=== PATIENT | female | born 1950 | race Caucasian/White ===

== ENCOUNTER 2023-03-15 06:35 | Inpatient (IN) | payer MEDICARE, OTHER ==
[~2023-03-15] VITALS: Ht 167.6 cm; Wt 69.9 kg
[2023-03-15 07:18] LABS: BASOPHILS % (AUTO) 0.2 % (0.0-2.0); EOSINOPHILS % (AUTO) 0.2 % (0.0-6.0); HEMATOCRIT 36 % (33-45); HEMOGLOBIN 11.5 g/dL (11.5-14.8); LYMPHOCYTES # (AUTO) 0.2 K/uL (0.8-4.8); MEAN CORPUSCULAR HEMOGLOBIN 25 PG (26.0-33.0); MEAN CORPUSCULAR HGB CONC 32 g/dl (31.0-36.0); MEAN CORPUSCULAR VOLUME 78 fL (82-100); MONOCYTES # (AUTO) 0.1 K/uL (0.1-1.30); MONOCYTES % (AUTO) 3.8 % (2.0-12.0); NEUTROPHILS # (AUTO) 3.2 K/uL (1.8-8.9); NEUTROPHILS % (AUTO) 88.8 % (43.0-81.0); PLATELET COUNT (AUTO) 228 K/uL (150-450); RED BLOOD CELL COUNT(AUTO) 4.54 MIL/uL (4.0-5.2); RED CELL DISTRIBUTION WIDTH 16.4 % (11.5-15.0); WHITE BLOOD COUNT (AUTO) 3.6 K/uL (4.3-11.0)
[2023-03-15] MEDS ORDERED: PIPERACILLIN /TAZOBACTAM 3.375 G in IV D5W 50 ML IV ONE (07:30)
[2023-03-15] MEDS ORDERED: ACETAMINOPHEN 650 MG/SUPP.RECT RC ONE ×2 (07:30→07:47)
[2023-03-15] MEDS ORDERED: IV NS 0.9% 1,000 ML BAG IV ONE (07:30)
[2023-03-15 07:36] LABS: CALCIUM, SERUM 8.6 mg/dL (8.5-10.1); CARBON DIOXIDE 21 mmol/L (21-32); CHLORIDE 96 mmol/L (98-107); GLUCOSE 147 mg/dL (74-106); INR 1.33 (0.91-1.10); PARTIAL THROMBOPLASTIN TIME 35.3 SEC (24.3-34.3); POTASSIUM 5.7 mmol/L (3.5-5.1); PROTHROMBIN TIME 13.8 SECS (9.2-11.1); SODIUM SERUM 131 mmol/L (136-145); UREA NITROGEN, BLOOD 46 mg/dL (7-18)
[2023-03-15 07:50] LABS: ALANINE AMINOTRANSFERASE 2598 U/L (12-78); ALBUMIN 3.1 g/dL (3.4-5.0); ALKALINE PHOSPHATASE 222 U/L (46-116); ASPARTATE AMINOTRANSFERASE > 1000 U/L (15-37); BILIRUBIN,DIRECT 0.3 mg/dL (0.0-0.2); BILIRUBIN,TOTAL 0.7 mg/dL (0.2-1.0)
[2023-03-15 07:55] LABS: LACTIC ACID 4.1 mmol/L (0.4-2.0)
[2023-03-15 08:03] LABS: APPEARANCE,URINE CLOUDY (CLEAR); BILIRUBIN,URINE NEGATIVE (NEGATIVE); BLOOD, URINE NEGATIVE Ery/uL (NEGATIVE); COLOR,URINE DARK YELLOW (YELLOW); KETONES,URINE NEGATIVE (NEGATIVE); LEUKOCYTE ESTERASE ,URINE 2+ (NEGATIVE); NITRITE, URINE NEGATIVE (NEGATIVE); PROTEIN,URINE 1+ mg/dl (NEGATIVE); UGLUCOSE NEGATIVE (NEGATIVE); UROBILINOGEN,URINE 0.2 EU/dL (0.2)
[2023-03-15 08:08] LABS: ADD URINE CULTURE YES; BACTERIA,URINE Moderate /HPF (None Seen); RBC,URINE 0-2 /HPF (0-2); SQUAMOUS EPITHELIAL CELL,UR Rare /HPF (None Seen)
[2023-03-15 08:22] LABS: ABG BASE EXCESS -2.6 mmol/L; ABG OXYGEN SATURATION 98.3 % (92.0-98.5); ABG PCO2 30.6 mmHg (35.0-45.0); ABG PH 7.446 (7.350-7.450); ABG PO2 121.7 mmHg (75.0-100.0); COHb 0.3 % (0.5-1.5); MetHb 0.2 % (0.0-1.5); O2Hb 97.8 % (94.0-97.0); SITE, ABG Left Radial
[2023-03-15] MEDS ORDERED: IPRATROPIUM NEB FS 0.5 MG/2.5 ML AMPUL.NEB NEB PRN (08:30)
[2023-03-15] MEDS ORDERED: ONDANSETRON HCL/PF 4 MG/2 ML VIAL IVP PRN (08:30)
[2023-03-15] MEDS ORDERED: MAGNESIUM HYDROXIDE 30 ML UDC PO PRN (08:30)
[2023-03-15] MEDS ORDERED: MAG HYDROX/AL HYDROX/SIMETH 30 ML UDC PO PRN (08:30)
[2023-03-15] MEDS ORDERED: DEXTROSE 50%-WATER 50 ML DISP.SYRIN IV PRN (08:30)
[2023-03-15] MEDS ORDERED: ACETAMINOPHEN 325 MG TABLET PO PRN (08:30)
[2023-03-15] MEDS ORDERED: ALBUTEROL FS 2.5 MG/0.5 ML VIAL.NEB NEB PRN (08:30)
[2023-03-15] MEDS ORDERED: Z GUARD REMEDY 4 OZ OINT TP PRN (08:30)
[2023-03-15] MEDS ORDERED: ZOLPIDEM TARTRATE 5 MG TABLET PO PRN (08:30)
[2023-03-15] MEDS ORDERED: HEPARIN SODIUM, PORCINE 5000 UNITS/1 ML VIAL SQ SCH (09:00)
[2023-03-15] MEDS: PANTOPRAZOLE 40 MG VIAL IV SCH (09:00)
[2023-03-15] MEDS ORDERED: CHOL100043 PO (09:17)
[2023-03-15] MEDS ORDERED: CRAN425C6 PO (09:17)
[2023-03-15] MEDS ORDERED: PETR113O TP (09:17)
[2023-03-15] MEDS ORDERED: CARV3.122 PO (09:17)
[2023-03-15] MEDS ORDERED: FOLI0.4T6 PO (09:17)
[2023-03-15] MEDS ORDERED: ACET-868 PO (09:17)
[2023-03-15] MEDS ORDERED: LEVE250T2 PO (09:17)
[2023-03-15] MEDS ORDERED: ASCO-352 PO (09:17)
[2023-03-15] MEDS ORDERED: ATOR40TA PO (09:17)
[2023-03-15] MEDS ORDERED: SPIR25TA6 PO (09:17)
[2023-03-15] MEDS ORDERED: DOCU-141 PO (09:17)
[2023-03-15] MEDS ORDERED: BISA10SU11 RC (09:17)
[2023-03-15] MEDS ORDERED: FAMO-130 PO (09:17)
[2023-03-15] MEDS ORDERED: MAGN400O6 PO (09:17)
[2023-03-15] MEDS ORDERED: INSU100V3 SQ (09:17)
[2023-03-15] MEDS ORDERED: MULT-447 PO (09:17)
[2023-03-15] MEDS ORDERED: ACET650S11 RC (09:17)
[2023-03-15] MEDS ORDERED: AMIN30LI66 PO (09:17)
[2023-03-15] MEDS ORDERED: NITR0.4T48 SL (09:17)
[2023-03-15] MEDS ORDERED: VITA1TAB56 PO (09:17)
[2023-03-15] MEDS ORDERED: FURO-144 PO (09:17)
[2023-03-15] MEDS ORDERED: OXYC5TAB3 PO (09:17)
[2023-03-15] MEDS ORDERED: GABA-532 PO (09:17)
[2023-03-15] MEDS ORDERED: APIX5TAB PO (09:17)
[2023-03-15] MEDS ORDERED: ZINC50TA69 PO (09:17)
[2023-03-15] MEDS ORDERED: ASPI-1169 PO (09:17)
[2023-03-15] MEDS ORDERED: ACET-2605 PO ×2 (09:17)
[2023-03-15] MEDS ORDERED: FERR325T23 PO (09:17)
[2023-03-15] MEDS ORDERED: PANTOPRAZOLE 40 MG VIAL ONE (11:20)
[2023-03-15] MEDS ORDERED: VANCOMYCIN 1.25 GM in IV D5W 250 ML IV ONE (12:00)
[2023-03-15] MEDS: BLOOD SUGAR DIAGNOSTIC 1 EACH STRIP IN SCH ×3 (12:17→21:36)
[2023-03-15] MEDS: ZOSYN IVPB 3.375 G in IV D5W 50ml IV SCH ×2 (14:05→19:39)
[2023-03-15] MEDS: ASPIRIN 81 MG TAB.CHEW PO SCH (15:30)
[2023-03-15] MEDS ORDERED: ENOXAPARIN SODIUM 80 MG/0.8 ML DISP.SYRIN SQ ONE (15:45)
[2023-03-15] MEDS: ENOXAPARIN SODIUM 80 MG/0.8 ML DISP.SYRIN SQ SCH (15:47)
[2023-03-15] MEDS ORDERED: PIPERACI/TAZO 3.375GM/D5W 50ML PB IV ONE (19:30)
[2023-03-16] MEDS ORDERED: PIPERACI/TAZO 3.375GM/D5W 50ML PB IV ONE ×2 (02:09→08:12)
[2023-03-16] MEDS: ZOSYN IVPB 3.375 G in IV D5W 50ml IV SCH ×2 (02:10→08:21)
[2023-03-16 05:38] LABS: ABG BASE EXCESS -4.2 mmol/L; ABG OXYGEN SATURATION 87.8 % (92.0-98.5); ABG PCO2 30.1 mmHg (35.0-45.0); ABG PH 7.423 (7.350-7.450); ABG PO2 58.3 mmHg (75.0-100.0); COHb 0.3 % (0.5-1.5); O2Hb 87.5 % (94.0-97.0); SITE, ABG Right Brachial; VENT MODE, BG nasal cannula
[2023-03-16] MEDS: BLOOD SUGAR DIAGNOSTIC 1 EACH STRIP IN SCH ×4 (08:19→22:33)
[2023-03-16] MEDS ORDERED: ASPIRIN 81 MG TAB.CHEW ONE (08:53)
[2023-03-16] MEDS ORDERED: PANTOPRAZOLE 40 MG VIAL ONE (08:53)
[2023-03-16] MEDS ORDERED: dexaMETHasone SOD PHOSPHATE 1 ML ONE (08:53)
[2023-03-16] MEDS: dexaMETHasone SOD PHOSPHATE 10 MG/ML VIAL IV SCH (09:01)
[2023-03-16] MEDS: PANTOPRAZOLE 40 MG VIAL IV SCH (09:02)
[2023-03-16] MEDS: ASPIRIN 81 MG TAB.CHEW PO SCH (09:03)
[2023-03-16 09:48] LABS: BASOPHILS % (AUTO) 0.2 % (0.0-2.0); HEMATOCRIT 35 % (33-45); HEMOGLOBIN 11.1 g/dL (11.5-14.8); LYMPHOCYTES # (AUTO) 0.5 K/uL (0.8-4.8); LYMPHOCYTES % (AUTO) 13.1 % (20.0-44.0); MEAN CORPUSCULAR HEMOGLOBIN 25 PG (26.0-33.0); MEAN CORPUSCULAR HGB CONC 32 g/dl (31.0-36.0); MEAN CORPUSCULAR VOLUME 79 fL (82-100); MONOCYTES # (AUTO) 0.2 K/uL (0.1-1.30); NEUTROPHILS # (AUTO) 3.2 K/uL (1.8-8.9); NEUTROPHILS % (AUTO) 81.7 % (43.0-81.0); PLATELET COUNT (AUTO) 162 K/uL (150-450); RED BLOOD CELL COUNT(AUTO) 4.43 MIL/uL (4.0-5.2); RED CELL DISTRIBUTION WIDTH 16.9 % (11.5-15.0); WHITE BLOOD COUNT (AUTO) 3.9 K/uL (4.3-11.0)
[2023-03-16 10:09] LABS: ALANINE AMINOTRANSFERASE 3506 U/L (12-78); ALBUMIN 2.8 g/dL (3.4-5.0); ALKALINE PHOSPHATASE 212 U/L (46-116); ASPARTATE AMINOTRANSFERASE > 1000 U/L (15-37); BILIRUBIN,DIRECT 0.4 mg/dL (0.0-0.2); BILIRUBIN,TOTAL 0.9 mg/dL (0.2-1.0); CALCIUM, SERUM 8.2 mg/dL (8.5-10.1); CARBON DIOXIDE 21 mmol/L (21-32); CHLORIDE 99 mmol/L (98-107); CREATININE 2.2 mg/dL (0.6-1.3); GLUCOSE 131 mg/dL (74-106); MAGNESIUM 2.7 mg/dL (1.8-2.4); PHOSPHORUS 6.2 mg/dL (2.5-4.9); POTASSIUM 4.3 mmol/L (3.5-5.1); SODIUM SERUM 134 mmol/L (136-145); TOTAL PROTEIN, SERUM 7.1 g/dL (6.4-8.2); UREA NITROGEN, BLOOD 61 mg/dL (7-18)
[2023-03-16 10:12] LABS: ABG BASE EXCESS -3.2 mmol/L; ABG OXYGEN SATURATION 97.4 % (92.0-98.5); ABG PCO2 27.2 mmHg (35.0-45.0); ABG PH 7.467 (7.350-7.450); ABG PO2 99.5 mmHg (75.0-100.0); ABG TOTAL HEMOGLOBIN 12.1 G/dL (12.0-16.0); COHb 0.3 % (0.5-1.5); MetHb 0.2 % (0.0-1.5); O2Hb 96.9 % (94.0-97.0); SITE, ABG Left Radial; VENT MODE, BG 8L S/M
[2023-03-16 10:13] LABS: CHOLESTEROL 93 mg/dL (<200); CREATINE KINASE, TOTAL 303 U/L (26-192); HDL CHOLESTEROL 29 mg/dL (40-60); LDL 42 mg/dL (0-99); TRIGLYCERIDES 116 mg/dL (30-150)
[2023-03-16 10:47] LABS: THYROID STIMULATING HORMONE 0.741 uIU/mL (0.358-3.74)
[2023-03-16 15:01] LABS: HIV-1 p24 ANTIGEN NON REACTIVE (NONREACTIVE); HIV-1/2 ANTIBODY NON REACTIVE (NONREACTIVE)
[2023-03-16] MEDS ORDERED: ENOXAPARIN SODIUM 80 MG/0.8 ML DISP.SYRIN SQ ONE (15:34)
[2023-03-16] MEDS: ENOXAPARIN SODIUM 80 MG/0.8 ML DISP.SYRIN SQ SCH (15:48)
[2023-03-16] MEDS ORDERED: FERROUS SULFATE (325 MG) 325 MG/TAB TABLET ONE (17:04)
[2023-03-16] MEDS ORDERED: LEVETIRACETAM (250 MG) 250 MG TABLET PO ONE (17:04)
[2023-03-16] MEDS: ZOSYN IVPB 2.25 G in IV D5W 50ml IV SCH (17:16)
[2023-03-16] MEDS: FERROUS SULFATE (325 MG) 325 MG/TAB TABLET PO SCH (17:17)
[2023-03-16] MEDS: LEVETIRACETAM (250 MG) 250 MG TABLET PO SCH (17:18)
[2023-03-17] MEDS: VANCOMYCIN 1 GM in IV D5W 250ml IV SCH (00:30)
[2023-03-17 05:28] LABS: EOSINOPHILS % (AUTO) 0.2 % (0.0-6.0); HEMATOCRIT 38 % (33-45); LYMPHOCYTES # (AUTO) 0.7 K/uL (0.8-4.8); LYMPHOCYTES % (AUTO) 14.2 % (20.0-44.0); MEAN CORPUSCULAR HEMOGLOBIN 25 PG (26.0-33.0); MEAN CORPUSCULAR HGB CONC 32 g/dl (31.0-36.0); MEAN CORPUSCULAR VOLUME 78 fL (82-100); MONOCYTES # (AUTO) 0.3 K/uL (0.1-1.30); NEUTROPHILS # (AUTO) 3.7 K/uL (1.8-8.9); NEUTROPHILS % (AUTO) 78.6 % (43.0-81.0); PLATELET COUNT (AUTO) 174 K/uL (150-450); RED BLOOD CELL COUNT(AUTO) 4.81 MIL/uL (4.0-5.2); RED CELL DISTRIBUTION WIDTH 16.9 % (11.5-15.0); WHITE BLOOD COUNT (AUTO) 4.7 K/uL (4.3-11.0)
[2023-03-17 05:55] LABS: ALANINE AMINOTRANSFERASE 2958 U/L (12-78); ALBUMIN 2.7 g/dL (3.4-5.0); ALKALINE PHOSPHATASE 200 U/L (46-116); ASPARTATE AMINOTRANSFERASE > 1000 U/L (15-37); BILIRUBIN,DIRECT 0.3 mg/dL (0.0-0.2); BILIRUBIN,TOTAL 0.7 mg/dL (0.2-1.0); CALCIUM, SERUM 8.2 mg/dL (8.5-10.1); CARBON DIOXIDE 22 mmol/L (21-32); CHLORIDE 102 mmol/L (98-107); CREATININE 2.2 mg/dL (0.6-1.3); GLUCOSE 158 mg/dL (74-106); MAGNESIUM 2.7 mg/dL (1.8-2.4); POTASSIUM 4.3 mmol/L (3.5-5.1); SODIUM SERUM 136 mmol/L (136-145); TOTAL PROTEIN, SERUM 6.9 g/dL (6.4-8.2); UREA NITROGEN, BLOOD 65 mg/dL (7-18)
[2023-03-17] MEDS: ZOSYN IVPB 2.25 G in IV D5W 50ml IV SCH ×5 (06:00→18:30)
[2023-03-17] MEDS: BLOOD SUGAR DIAGNOSTIC 1 EACH STRIP IN SCH ×4 (07:30→23:59)
[2023-03-17] MEDS ORDERED: ASPIRIN 81 MG TAB.CHEW PO SCH (09:00)
[2023-03-17] MEDS ORDERED: APIXABAN 5 MG TABLET PO SCH (09:00)
[2023-03-17] MEDS ORDERED: dexaMETHasone SOD PHOSPHATE 1 ML ONE (09:25)
[2023-03-17] MEDS ORDERED: PANTOPRAZOLE 40 MG VIAL ONE (09:25)
[2023-03-17] MEDS ORDERED: FERROUS SULFATE (325 MG) 325 MG/TAB TABLET ONE (09:26)
[2023-03-17] MEDS ORDERED: ASPIRIN EC 81 MG TABLET.DR PO ONE (09:26)
[2023-03-17] MEDS ORDERED: DOCUSATE SODIUM 100 MG CAPSULE PO ONE (09:26)
[2023-03-17] MEDS ORDERED: ATORVASTATIN 40 MG TABLET ONE (09:26)
[2023-03-17] MEDS ORDERED: GABAPENTIN 100 MG CAPSULE ONE (09:26)
[2023-03-17] MEDS ORDERED: ASCORBIC ACID 500 MG TABLET ONE (09:27)
[2023-03-17] MEDS ORDERED: LEVETIRACETAM (250 MG) 250 MG TABLET PO ONE (09:27)
[2023-03-17] MEDS ORDERED: CARVEDILOL 3.125 MG TABLET ONE (09:27)
[2023-03-17] MEDS ORDERED: SPIRONOLACTONE 25 MG TABLET ONE (09:27)
[2023-03-17] MEDS: DOCUSATE SODIUM 100 MG CAPSULE PO SCH (09:47)
[2023-03-17] MEDS: PANTOPRAZOLE 40 MG VIAL IV SCH (09:47)
[2023-03-17] MEDS: ASPIRIN 81 MG TAB.CHEW PO SCH (09:47)
[2023-03-17] MEDS: SPIRONOLACTONE 25 MG TABLET PO SCH (09:47)
[2023-03-17] MEDS: dexaMETHasone SOD PHOSPHATE 10 MG/ML VIAL IV SCH (09:47)
[2023-03-17] MEDS: FERROUS SULFATE (325 MG) 325 MG/TAB TABLET PO SCH ×2 (09:48→18:30)
[2023-03-17] MEDS: LEVETIRACETAM (250 MG) 250 MG TABLET PO SCH ×2 (09:48→18:30)
[2023-03-17] MEDS: GABAPENTIN 100 MG CAPSULE PO SCH (09:48)
[2023-03-17] MEDS: ASCORBIC ACID 500 MG TABLET PO SCH (09:48)
[2023-03-17] MEDS: CARVEDILOL 3.125 MG TABLET PO SCH (09:48)
[2023-03-17] MEDS: ATORVASTATIN 40 MG TABLET PO SCH (09:48)
[2023-03-17] MEDS ORDERED: INSULIN REGULAR, HUMAN 100 UNIT/ML 10 ML VIAL ONE (13:27)
[2023-03-17] MEDS: INSULIN REGULAR, HUMAN 100 UNIT/ML 3 ML VIAL SQ PRN ×2 (13:30→19:42)
[2023-03-17] MEDS: ENOXAPARIN SODIUM 80 MG/0.8 ML DISP.SYRIN SQ SCH (18:30)
[2023-03-18] MEDS: ZOSYN IVPB 2.25 G in IV D5W 50ml IV SCH ×5 (00:46→23:13)
[2023-03-18] MEDS: BLOOD SUGAR DIAGNOSTIC 1 EACH STRIP IN SCH ×4 (06:31→22:49)
[2023-03-18 07:05] LABS: BASOPHILS % (AUTO) 0.3 % (0.0-2.0); HEMATOCRIT 39 % (33-45); HEMOGLOBIN 12.4 g/dL (11.5-14.8); LYMPHOCYTES # (AUTO) 0.4 K/uL (0.8-4.8); LYMPHOCYTES % (AUTO) 5.8 % (20.0-44.0); MEAN CORPUSCULAR HEMOGLOBIN 25 PG (26.0-33.0); MEAN CORPUSCULAR HGB CONC 32 g/dl (31.0-36.0); MEAN CORPUSCULAR VOLUME 80 fL (82-100); MONOCYTES # (AUTO) 0.4 K/uL (0.1-1.30); MONOCYTES % (AUTO) 6.3 % (2.0-12.0); NEUTROPHILS # (AUTO) 5.3 K/uL (1.8-8.9); NEUTROPHILS % (AUTO) 87.6 % (43.0-81.0); PLATELET COUNT (AUTO) 161 K/uL (150-450); RED BLOOD CELL COUNT(AUTO) 4.93 MIL/uL (4.0-5.2); RED CELL DISTRIBUTION WIDTH 17.1 % (11.5-15.0)
[2023-03-18 07:39] LABS: ALANINE AMINOTRANSFERASE 2353 U/L (12-78); ALBUMIN 2.6 g/dL (3.4-5.0); ALKALINE PHOSPHATASE 167 U/L (46-116); ASPARTATE AMINOTRANSFERASE > 1000 U/L (15-37); BILIRUBIN,DIRECT 0.3 mg/dL (0.0-0.2); BILIRUBIN,TOTAL 0.8 mg/dL (0.2-1.0); CALCIUM, SERUM 8.3 mg/dL (8.5-10.1); CARBON DIOXIDE 21 mmol/L (21-32); CHLORIDE 103 mmol/L (98-107); CREATININE 1.8 mg/dL (0.6-1.3); GLUCOSE 149 mg/dL (74-106); MAGNESIUM 2.9 mg/dL (1.8-2.4); POTASSIUM 4.2 mmol/L (3.5-5.1); SODIUM SERUM 136 mmol/L (136-145); TOTAL PROTEIN, SERUM 6.6 g/dL (6.4-8.2); UREA NITROGEN, BLOOD 68 mg/dL (7-18)
[2023-03-18 08:07] LABS: *SPE A/G RATIO 0.8 (0.7-1.7); *SPE ALBUMIN 2.8 g/dL (2.9-4.4); *SPE ALPHA-1-GLOBULIN 0.3 g/dL (0.0-0.4); *SPE ALPHA-2-GLOBULIN 1.2 g/dL (0.4-1.0); *SPE BETA GLOBULIN 0.6 g/dL (0.7-1.3); *SPE GLOBULIN, TOTAL 3.4 g/dL (2.2-3.9); *SPE M-SPIKE Not Observed g/dL (Not Observed); *SPE PROTEIN TOTAL 6.2 g/dL (6.0-8.5); *SPEGAMMA GLOBULIN 1.3 g/dL (0.4-1.8); PTH, INTACT 87 pg/mL (15-65)
[2023-03-18] MEDS: LEVETIRACETAM (250 MG) 250 MG TABLET PO SCH ×2 (09:00→16:22)
[2023-03-18] MEDS: SPIRONOLACTONE 25 MG TABLET PO SCH (09:00)
[2023-03-18] MEDS: FERROUS SULFATE (325 MG) 325 MG/TAB TABLET PO SCH ×2 (09:00→16:22)
[2023-03-18] MEDS: ASCORBIC ACID 500 MG TABLET PO SCH (09:00)
[2023-03-18] MEDS: GABAPENTIN 100 MG CAPSULE PO SCH (09:00)
[2023-03-18] MEDS: CARVEDILOL 3.125 MG TABLET PO SCH (09:00)
[2023-03-18] MEDS: DOCUSATE SODIUM 100 MG CAPSULE PO SCH (09:00)
[2023-03-18] MEDS: ASPIRIN 81 MG TAB.CHEW PO SCH (09:00)
[2023-03-18] MEDS: APIXABAN 5 MG TABLET PO SCH ×2 (09:00→16:22)
[2023-03-18] MEDS: ATORVASTATIN 40 MG TABLET PO SCH (09:00)
[2023-03-18] MEDS: PANTOPRAZOLE 40 MG VIAL IV SCH (09:12)
[2023-03-18] MEDS: dexaMETHasone SOD PHOSPHATE 10 MG/ML VIAL IV SCH (09:13)
[2023-03-18 09:51] LABS: ALANINE AMINOTRANSFERASE 2199 U/L (12-78); ALBUMIN 2.5 g/dL (3.4-5.0); ALKALINE PHOSPHATASE 172 U/L (46-116); ASPARTATE AMINOTRANSFERASE > 1000 U/L (15-37); BILIRUBIN,DIRECT 0.3 mg/dL (0.0-0.2); BILIRUBIN,TOTAL 0.8 mg/dL (0.2-1.0); TOTAL PROTEIN, SERUM 6.4 g/dL (6.4-8.2)
[2023-03-18] MEDS: VANCOMYCIN 1 GM in IV D5W 250ml IV SCH (12:29)
[2023-03-18] MEDS: INSULIN REGULAR, HUMAN 100 UNIT/ML 3 ML VIAL SQ PRN ×2 (16:46→23:15)
[2023-03-18 20:00] VITALS: BP 138/79; TEMP 98; O2SAT 97
[2023-03-19] VITALS: BP 128/70; TEMP 98; O2SAT 97
[2023-03-19 04:00] VITALS: BP 124/70; TEMP 98; O2SAT 98
[2023-03-19] MEDS: ZOSYN IVPB 2.25 G in IV D5W 50ml IV SCH ×4 (06:12→23:28)
[2023-03-19 06:52] LABS: CALCIUM, SERUM 8.4 mg/dL (8.5-10.1); CARBON DIOXIDE 19 mmol/L (21-32); CHLORIDE 99 mmol/L (98-107); CREATININE 1.6 mg/dL (0.6-1.3); GLUCOSE 145 mg/dL (74-106); MAGNESIUM 2.9 mg/dL (1.8-2.4); POTASSIUM 4.6 mmol/L (3.5-5.1); SODIUM SERUM 129 mmol/L (136-145); UREA NITROGEN, BLOOD 57 mg/dL (7-18)
[2023-03-19 08:00] VITALS: BP 103/72; TEMP 97.9; O2SAT 100
[2023-03-19] MEDS ORDERED: MUPIROCIN OINT 2% 22 GM TUBE NS SCH (09:00)
[2023-03-19] MEDS: dexaMETHasone SOD PHOSPHATE 10 MG/ML VIAL IV SCH (09:01)
[2023-03-19] MEDS: ASPIRIN 81 MG TAB.CHEW PO SCH (09:01)
[2023-03-19] MEDS: FERROUS SULFATE (325 MG) 325 MG/TAB TABLET PO SCH ×2 (09:01→16:11)
[2023-03-19] MEDS: SPIRONOLACTONE 25 MG TABLET PO SCH (09:01)
[2023-03-19] MEDS: ATORVASTATIN 40 MG TABLET PO SCH (09:02)
[2023-03-19] MEDS: ASCORBIC ACID 500 MG TABLET PO SCH (09:02)
[2023-03-19] MEDS: DOCUSATE SODIUM 100 MG CAPSULE PO SCH (09:02)
[2023-03-19] MEDS: GABAPENTIN 100 MG CAPSULE PO SCH (09:02)
[2023-03-19] MEDS: LEVETIRACETAM (250 MG) 250 MG TABLET PO SCH ×2 (09:02→16:11)
[2023-03-19] MEDS: CARVEDILOL 3.125 MG TABLET PO SCH (09:02)
[2023-03-19] MEDS: PANTOPRAZOLE 40 MG VIAL IV SCH (09:03)
[2023-03-19] MEDS: APIXABAN 5 MG TABLET PO SCH ×2 (09:03→16:11)
[2023-03-19 09:39] LABS: BASOPHILS % (AUTO) 0.2 % (0.0-2.0); HEMATOCRIT 38 % (33-45); HEMOGLOBIN 11.8 g/dL (11.5-14.8); LYMPHOCYTES # (AUTO) 0.3 K/uL (0.8-4.8); LYMPHOCYTES % (AUTO) 5.6 % (20.0-44.0); MEAN CORPUSCULAR HEMOGLOBIN 25 PG (26.0-33.0); MEAN CORPUSCULAR HGB CONC 31 g/dl (31.0-36.0); MEAN CORPUSCULAR VOLUME 80 fL (82-100); MONOCYTES # (AUTO) 0.5 K/uL (0.1-1.30); MONOCYTES % (AUTO) 8.8 % (2.0-12.0); NEUTROPHILS # (AUTO) 4.8 K/uL (1.8-8.9); NEUTROPHILS % (AUTO) 85.4 % (43.0-81.0); PLATELET COUNT (AUTO) 130 K/uL (150-450); RED BLOOD CELL COUNT(AUTO) 4.74 MIL/uL (4.0-5.2); RED CELL DISTRIBUTION WIDTH 16.9 % (11.5-15.0); WHITE BLOOD COUNT (AUTO) 5.7 K/uL (4.3-11.0)
[2023-03-19] MEDS: MUPIROCIN OINT 2% 22 GM TUBE NS SCH ×2 (09:48→22:12)
[2023-03-19] MEDS: BLOOD SUGAR DIAGNOSTIC 1 EACH STRIP IN SCH ×4 (10:21→22:48)
[2023-03-19] MEDS: INSULIN REGULAR, HUMAN 100 UNIT/ML 3 ML VIAL SQ PRN ×4 (10:22→22:48)
[2023-03-19] MEDS: VANCOMYCIN 0.75 GM in IV D5W 250 ML IV SCH (11:10)
[2023-03-19 12:00] VITALS: BP 110/72; TEMP 98; O2SAT 100
[2023-03-19 12:09] LABS: ALBUMIN 2.3 g/dL (3.4-5.0); BILIRUBIN,DIRECT 0.2 mg/dL (0.0-0.2); BILIRUBIN,TOTAL 0.8 mg/dL (0.2-1.0); TOTAL PROTEIN, SERUM 6.3 g/dL (6.4-8.2)
[2023-03-19 16:00] VITALS: BP 118/89; TEMP 97.9; O2SAT 100
[2023-03-19] MEDS: FUROSEMIDE 20 MG/2 ML VIAL IV SCH (17:06)
[2023-03-19 20:00] VITALS: BP 105/82; TEMP 98; O2SAT 98
[2023-03-20 04:00] VITALS: BP 137/82; TEMP 98.4; O2SAT 97
[2023-03-20] MEDS: ZOSYN IVPB 2.25 G in IV D5W 50ml IV SCH ×4 (05:13→23:14)
[2023-03-20] MEDS ORDERED: ALBUTEROL HALF STRENGTH 1.25 MG/3 ML VIAL.NEB NEB PRN (07:00)
[2023-03-20 07:20] LABS: BASOPHILS % (AUTO) 0.1 % (0.0-2.0); HEMATOCRIT 37 % (33-45); HEMOGLOBIN 11.5 g/dL (11.5-14.8); LYMPHOCYTES # (AUTO) 0.3 K/uL (0.8-4.8); LYMPHOCYTES % (AUTO) 4.2 % (20.0-44.0); MEAN CORPUSCULAR HEMOGLOBIN 25 PG (26.0-33.0); MEAN CORPUSCULAR HGB CONC 31 g/dl (31.0-36.0); MEAN CORPUSCULAR VOLUME 80 fL (82-100); MONOCYTES # (AUTO) 0.5 K/uL (0.1-1.30); MONOCYTES % (AUTO) 8.6 % (2.0-12.0); NEUTROPHILS # (AUTO) 5.2 K/uL (1.8-8.9); NEUTROPHILS % (AUTO) 87.1 % (43.0-81.0); PLATELET COUNT (AUTO) 97 K/uL (150-450); RED BLOOD CELL COUNT(AUTO) 4.65 MIL/uL (4.0-5.2); RED CELL DISTRIBUTION WIDTH 16.4 % (11.5-15.0)
[2023-03-20 07:38] LABS: CALCIUM, SERUM 8.1 mg/dL (8.5-10.1); CARBON DIOXIDE 18 mmol/L (21-32); CHLORIDE 94 mmol/L (98-107); CREATININE 1.5 mg/dL (0.6-1.3); GLUCOSE 259 mg/dL (74-106); MAGNESIUM 2.3 mg/dL (1.8-2.4); POTASSIUM 4.2 mmol/L (3.5-5.1); SODIUM SERUM 124 mmol/L (136-145); UREA NITROGEN, BLOOD 49 mg/dL (7-18)
[2023-03-20 07:50] LABS: ALBUMIN 2.2 g/dL (3.4-5.0); BILIRUBIN,DIRECT 0.2 mg/dL (0.0-0.2); BILIRUBIN,TOTAL 0.7 mg/dL (0.2-1.0); TOTAL PROTEIN, SERUM 6.4 g/dL (6.4-8.2)
[2023-03-20 08:00] VITALS: BP 116/88; TEMP 98.4; O2SAT 95
[2023-03-20] MEDS: BLOOD SUGAR DIAGNOSTIC 1 EACH STRIP IN SCH ×4 (09:12→22:19)
[2023-03-20] MEDS: INSULIN REGULAR, HUMAN 100 UNIT/ML 3 ML VIAL SQ PRN ×4 (09:16→22:18)
[2023-03-20] MEDS: INSULIN GLARGINE, 100 UNIT/ML CARTRIDGE SQ SCH ×2 (09:17→17:43)
[2023-03-20] MEDS: FUROSEMIDE 20 MG/2 ML VIAL IV SCH ×2 (09:22→17:21)
[2023-03-20] MEDS: dexaMETHasone SOD PHOSPHATE 10 MG/ML VIAL IV SCH (09:22)
[2023-03-20] MEDS: MUPIROCIN OINT 2% 22 GM TUBE NS SCH ×2 (09:23→22:15)
[2023-03-20] MEDS: SPIRONOLACTONE 25 MG TABLET PO SCH (09:23)
[2023-03-20] MEDS: ASPIRIN 81 MG TAB.CHEW PO SCH (09:23)
[2023-03-20] MEDS: DOCUSATE SODIUM 100 MG CAPSULE PO SCH (09:23)
[2023-03-20] MEDS: CARVEDILOL 3.125 MG TABLET PO SCH (09:24)
[2023-03-20] MEDS: GABAPENTIN 100 MG CAPSULE PO SCH (09:26)
[2023-03-20] MEDS: LEVETIRACETAM (250 MG) 250 MG TABLET PO SCH ×2 (09:26→17:22)
[2023-03-20] MEDS: ATORVASTATIN 40 MG TABLET PO SCH (09:26)
[2023-03-20] MEDS: APIXABAN 5 MG TABLET PO SCH ×2 (09:26→17:22)
[2023-03-20] MEDS: FERROUS SULFATE (325 MG) 325 MG/TAB TABLET PO SCH ×2 (09:26→17:22)
[2023-03-20] MEDS: ASCORBIC ACID 500 MG TABLET PO SCH (09:27)
[2023-03-20] MEDS: BISACODYL SUPP (10 MG) 10 MG/SUPP.RECT SUPP.RECT RC PRN (09:27)
[2023-03-20] MEDS: PANTOPRAZOLE 40 MG/PACK PACK PO SCH (09:33)
[2023-03-20] MEDS: VANCOMYCIN 0.75 GM in IV D5W 250 ML IV SCH (13:40)
[2023-03-20 16:00] VITALS: BP 106/77; TEMP 96.8; O2SAT 99
[2023-03-20 20:00] VITALS: BP 118/80; TEMP 98; O2SAT 99
[2023-03-21 04:00] VITALS: BP 113/88; TEMP 97.8; O2SAT 98
[2023-03-21] MEDS: ZOSYN IVPB 2.25 G in IV D5W 50ml IV SCH (05:43)
[2023-03-21 07:55] LABS: BASOPHILS % (AUTO) 0.2 % (0.0-2.0); HEMATOCRIT 35 % (33-45); HEMOGLOBIN 11.4 g/dL (11.5-14.8); LYMPHOCYTES # (AUTO) 0.2 K/uL (0.8-4.8); LYMPHOCYTES % (AUTO) 1.9 % (20.0-44.0); MEAN CORPUSCULAR HEMOGLOBIN 25 PG (26.0-33.0); MEAN CORPUSCULAR HGB CONC 33 g/dl (31.0-36.0); MEAN CORPUSCULAR VOLUME 76 fL (82-100); MONOCYTES # (AUTO) 0.6 K/uL (0.1-1.30); MONOCYTES % (AUTO) 4.6 % (2.0-12.0); NEUTROPHILS # (AUTO) 11.2 K/uL (1.8-8.9); NEUTROPHILS % (AUTO) 93.3 % (43.0-81.0); PLATELET COUNT (AUTO) 143 K/uL (150-450); RED BLOOD CELL COUNT(AUTO) 4.56 MIL/uL (4.0-5.2); RED CELL DISTRIBUTION WIDTH 16.7 % (11.5-15.0); WHITE BLOOD COUNT (AUTO) 12.1 K/uL (4.3-11.0)
[2023-03-21 08:00] VITALS: BP 109/86; TEMP 97.5; O2SAT 100
[2023-03-21 08:22] LABS: ALBUMIN 2.2 g/dL (3.4-5.0); BILIRUBIN,DIRECT 0.3 mg/dL (0.0-0.2); BILIRUBIN,TOTAL 0.7 mg/dL (0.2-1.0); TOTAL PROTEIN, SERUM 6.4 g/dL (6.4-8.2)
[2023-03-21 08:26] LABS: CALCIUM, SERUM 8.4 mg/dL (8.5-10.1); CREATININE 1.2 mg/dL (0.6-1.3); POTASSIUM 3.9 mmol/L (3.5-5.1)
[2023-03-21] MEDS: INSULIN REGULAR, HUMAN 100 UNIT/ML 3 ML VIAL SQ PRN ×4 (08:55→21:40)
[2023-03-21] MEDS: BLOOD SUGAR DIAGNOSTIC 1 EACH STRIP IN SCH ×4 (08:56→21:33)
[2023-03-21] MEDS: INSULIN GLARGINE, 100 UNIT/ML CARTRIDGE SQ SCH ×2 (09:00→17:58)
[2023-03-21] MEDS: PANTOPRAZOLE 40 MG/PACK PACK PO SCH (09:45)
[2023-03-21] MEDS: ATORVASTATIN 40 MG TABLET PO SCH (09:45)
[2023-03-21] MEDS: GABAPENTIN 100 MG CAPSULE PO SCH (09:46)
[2023-03-21] MEDS: LEVETIRACETAM (250 MG) 250 MG TABLET PO SCH ×2 (09:46→17:54)
[2023-03-21] MEDS: DOCUSATE SODIUM 100 MG CAPSULE PO SCH (09:46)
[2023-03-21] MEDS: SPIRONOLACTONE 25 MG TABLET PO SCH (09:46)
[2023-03-21] MEDS: ASPIRIN 81 MG TAB.CHEW PO SCH (09:46)
[2023-03-21] MEDS: FERROUS SULFATE (325 MG) 325 MG/TAB TABLET PO SCH ×2 (09:47→17:58)
[2023-03-21] MEDS: ASCORBIC ACID 500 MG TABLET PO SCH (09:47)
[2023-03-21] MEDS: CARVEDILOL 3.125 MG TABLET PO SCH (09:48)
[2023-03-21] MEDS: GLUCERNA SHAKE 237 ML CAN PO SCH (09:51)
[2023-03-21] MEDS: APIXABAN 5 MG TABLET PO SCH ×2 (09:51→17:55)
[2023-03-21] MEDS: MUPIROCIN OINT 2% 22 GM TUBE NS SCH ×2 (09:51→21:33)
[2023-03-21] MEDS: dexaMETHasone SOD PHOSPHATE 10 MG/ML VIAL IV SCH (09:57)
[2023-03-21] MEDS: FUROSEMIDE 20 MG/2 ML VIAL IV SCH ×2 (09:58→17:17)
[2023-03-21] MEDS: VANCOMYCIN 0.75 GM in IV D5W 250 ML IV SCH (11:31)
[2023-03-21 12:00] VITALS: BP 103/79; TEMP 97.7; O2SAT 100
[2023-03-21] MEDS ORDERED: ZOSYN IVPB 3.375 G in IV D5W 50ml IV SCH (12:00)
[2023-03-21] MEDS ORDERED: IV NS 0.9% 250 ML IV PRN (12:00)
[2023-03-21] MEDS ORDERED: IV 1/2NS 1000 ML 1,000 ML IV PRN (12:00)
[2023-03-21] MEDS: BISACODYL SUPP (10 MG) 10 MG/SUPP.RECT SUPP.RECT RC PRN (13:53)
[2023-03-21 16:45] LABS: CALCIUM, SERUM 8.1 mg/dL (8.5-10.1); CREATININE 1.3 mg/dL (0.6-1.3); POTASSIUM 5.1 mmol/L (3.5-5.1)
[2023-03-21 20:00] VITALS: BP 103/77; TEMP 97.7; O2SAT 100
[2023-03-22 04:00] VITALS: BP 119/98; TEMP 97.8; O2SAT 97
[2023-03-22 07:23] LABS: HEMATOCRIT 36 % (33-45); HEMOGLOBIN 11.6 g/dL (11.5-14.8); LYMPHOCYTES # (AUTO) 0.2 K/uL (0.8-4.8); LYMPHOCYTES % (AUTO) 1.4 % (20.0-44.0); MEAN CORPUSCULAR HEMOGLOBIN 24 PG (26.0-33.0); MEAN CORPUSCULAR HGB CONC 32 g/dl (31.0-36.0); MEAN CORPUSCULAR VOLUME 76 fL (82-100); MONOCYTES # (AUTO) 0.4 K/uL (0.1-1.30); MONOCYTES % (AUTO) 3.1 % (2.0-12.0); NEUTROPHILS # (AUTO) 13.1 K/uL (1.8-8.9); NEUTROPHILS % (AUTO) 95.5 % (43.0-81.0); PLATELET COUNT (AUTO) 184 K/uL (150-450); RED BLOOD CELL COUNT(AUTO) 4.75 MIL/uL (4.0-5.2); RED CELL DISTRIBUTION WIDTH 16.9 % (11.5-15.0); WHITE BLOOD COUNT (AUTO) 13.8 K/uL (4.3-11.0)
[2023-03-22] MEDS: BLOOD SUGAR DIAGNOSTIC 1 EACH STRIP IN SCH ×4 (07:49→21:32)
[2023-03-22] MEDS: INSULIN REGULAR, HUMAN 100 UNIT/ML 3 ML VIAL SQ PRN ×4 (07:50→22:42)
[2023-03-22] MEDS: GLUCERNA SHAKE 237 ML CAN PO SCH (08:00)
[2023-03-22 08:07] LABS: ALANINE AMINOTRANSFERASE 627 U/L (12-78); ALBUMIN 2.3 g/dL (3.4-5.0); ALKALINE PHOSPHATASE 158 U/L (46-116); ASPARTATE AMINOTRANSFERASE 87 U/L (15-37); BILIRUBIN,TOTAL 0.8 mg/dL (0.2-1.0); CALCIUM, SERUM 8.3 mg/dL (8.5-10.1); CARBON DIOXIDE 26 mmol/L (21-32); CHLORIDE 91 mmol/L (98-107); CREATININE 1.2 mg/dL (0.6-1.3); GLUCOSE 199 mg/dL (74-106); SODIUM SERUM 125 mmol/L (136-145); TOTAL PROTEIN, SERUM 6.9 g/dL (6.4-8.2); UREA NITROGEN, BLOOD 40 mg/dL (7-18)
[2023-03-22] MEDS: GABAPENTIN 100 MG CAPSULE PO SCH (08:32)
[2023-03-22] MEDS: ASPIRIN 81 MG TAB.CHEW PO SCH (08:32)
[2023-03-22] MEDS: ASCORBIC ACID 500 MG TABLET PO SCH (08:32)
[2023-03-22] MEDS: ATORVASTATIN 40 MG TABLET PO SCH (08:32)
[2023-03-22] MEDS: dexaMETHasone SOD PHOSPHATE 10 MG/ML VIAL IV SCH (08:33)
[2023-03-22] MEDS: SPIRONOLACTONE 25 MG TABLET PO SCH (08:33)
[2023-03-22] MEDS: LEVETIRACETAM (250 MG) 250 MG TABLET PO SCH ×2 (08:33→16:11)
[2023-03-22] MEDS: FERROUS SULFATE (325 MG) 325 MG/TAB TABLET PO SCH ×2 (08:33→16:11)
[2023-03-22] MEDS: FUROSEMIDE 20 MG/2 ML VIAL IV SCH ×2 (08:33→16:12)
[2023-03-22] MEDS: CARVEDILOL 3.125 MG TABLET PO SCH (08:33)
[2023-03-22] MEDS: PANTOPRAZOLE 40 MG/PACK PACK PO SCH (08:34)
[2023-03-22] MEDS: DOCUSATE SODIUM 100 MG CAPSULE PO SCH (08:34)
[2023-03-22] MEDS: APIXABAN 5 MG TABLET PO SCH ×2 (08:35→16:12)
[2023-03-22] MEDS: INSULIN GLARGINE, 100 UNIT/ML CARTRIDGE SQ SCH ×2 (08:36→16:28)
[2023-03-22] MEDS: MUPIROCIN OINT 2% 22 GM TUBE NS SCH ×2 (08:39→21:31)
[2023-03-22 12:54] VITALS: BP 116/88; TEMP 98.4; O2SAT 95
[2023-03-22 20:00] VITALS: BP 125/71; TEMP 98.7; O2SAT 95
[2023-03-23 04:00] VITALS: BP 137/97; TEMP 98; O2SAT 96
[2023-03-23 07:28] LABS: BASOPHILS % (AUTO) 0.1 % (0.0-2.0); HEMATOCRIT 36 % (33-45); HEMOGLOBIN 11.7 g/dL (11.5-14.8); LYMPHOCYTES # (AUTO) 0.1 K/uL (0.8-4.8); LYMPHOCYTES % (AUTO) 1.3 % (20.0-44.0); MEAN CORPUSCULAR HEMOGLOBIN 25 PG (26.0-33.0); MEAN CORPUSCULAR HGB CONC 33 g/dl (31.0-36.0); MEAN CORPUSCULAR VOLUME 77 fL (82-100); MONOCYTES # (AUTO) 0.5 K/uL (0.1-1.30); MONOCYTES % (AUTO) 5.3 % (2.0-12.0); NEUTROPHILS # (AUTO) 9.3 K/uL (1.8-8.9); NEUTROPHILS % (AUTO) 93.3 % (43.0-81.0); PLATELET COUNT (AUTO) 131 K/uL (150-450); RED BLOOD CELL COUNT(AUTO) 4.69 MIL/uL (4.0-5.2); RED CELL DISTRIBUTION WIDTH 17.3 % (11.5-15.0); WHITE BLOOD COUNT (AUTO) 9.9 K/uL (4.3-11.0)
[2023-03-23] MEDS: BLOOD SUGAR DIAGNOSTIC 1 EACH STRIP IN SCH ×4 (07:38→21:58)
[2023-03-23] MEDS: INSULIN REGULAR, HUMAN 100 UNIT/ML 3 ML VIAL SQ PRN ×4 (07:39→22:53)
[2023-03-23 07:42] LABS: CALCIUM, SERUM 8.5 mg/dL (8.5-10.1); CREATININE 1.1 mg/dL (0.6-1.3); POTASSIUM 4.3 mmol/L (3.5-5.1)
[2023-03-23] MEDS: GLUCERNA SHAKE 237 ML CAN PO SCH (08:14)
[2023-03-23] MEDS: PANTOPRAZOLE 40 MG/PACK PACK PO SCH (08:14)
[2023-03-23] MEDS: GABAPENTIN 100 MG CAPSULE PO SCH (08:14)
[2023-03-23] MEDS: ATORVASTATIN 40 MG TABLET PO SCH (08:14)
[2023-03-23] MEDS: ASCORBIC ACID 500 MG TABLET PO SCH (08:14)
[2023-03-23] MEDS: LEVETIRACETAM (250 MG) 250 MG TABLET PO SCH ×2 (08:14→16:07)
[2023-03-23] MEDS: FERROUS SULFATE (325 MG) 325 MG/TAB TABLET PO SCH ×2 (08:14→16:07)
[2023-03-23] MEDS: ASPIRIN 81 MG TAB.CHEW PO SCH (08:14)
[2023-03-23] MEDS: CARVEDILOL 3.125 MG TABLET PO SCH (08:15)
[2023-03-23] MEDS: DOCUSATE SODIUM 100 MG CAPSULE PO SCH (08:15)
[2023-03-23] MEDS: FUROSEMIDE 20 MG/2 ML VIAL IV SCH ×2 (08:15→16:09)
[2023-03-23] MEDS: dexaMETHasone SOD PHOSPHATE 10 MG/ML VIAL IV SCH (08:15)
[2023-03-23] MEDS: MUPIROCIN OINT 2% 22 GM TUBE NS SCH ×2 (08:16→21:59)
[2023-03-23] MEDS: SPIRONOLACTONE 25 MG TABLET PO SCH (08:16)
[2023-03-23] MEDS: INSULIN GLARGINE, 100 UNIT/ML CARTRIDGE SQ SCH ×2 (08:17→16:08)
[2023-03-23] MEDS: APIXABAN 5 MG TABLET PO SCH ×2 (08:17→16:08)
[2023-03-23 09:30] LABS: BILIRUBIN,DIRECT 0.2 mg/dL (0.0-0.2); BILIRUBIN,TOTAL 0.6 mg/dL (0.2-1.0); TOTAL PROTEIN, SERUM 6.5 g/dL (6.4-8.2)
[2023-03-23 13:39] VITALS: BP 113/88; TEMP 97.8; O2SAT 98
[2023-03-23 20:00] VITALS: BP 132/92; TEMP 98.4; O2SAT 100
[2023-03-24 04:00] VITALS: BP 119/97; TEMP 97.8; O2SAT 96
[2023-03-24 08:00] VITALS: BP 119/94; TEMP 97; O2SAT 96
[2023-03-24] MEDS: FERROUS SULFATE (325 MG) 325 MG/TAB TABLET PO SCH ×2 (09:47→17:11)
[2023-03-24] MEDS: PANTOPRAZOLE 40 MG/PACK PACK PO SCH (09:47)
[2023-03-24] MEDS: dexaMETHasone SOD PHOSPHATE 10 MG/ML VIAL IV SCH (09:47)
[2023-03-24] MEDS: ASPIRIN 81 MG TAB.CHEW PO SCH (09:47)
[2023-03-24] MEDS: BLOOD SUGAR DIAGNOSTIC 1 EACH STRIP IN SCH ×4 (09:47→22:00)
[2023-03-24] MEDS: CARVEDILOL 3.125 MG TABLET PO SCH (09:48)
[2023-03-24] MEDS: DOCUSATE SODIUM 100 MG CAPSULE PO SCH (09:48)
[2023-03-24] MEDS: LEVETIRACETAM (250 MG) 250 MG TABLET PO SCH ×2 (09:48→17:11)
[2023-03-24] MEDS: ATORVASTATIN 40 MG TABLET PO SCH (09:49)
[2023-03-24] MEDS: ASCORBIC ACID 500 MG TABLET PO SCH (09:49)
[2023-03-24] MEDS: GABAPENTIN 100 MG CAPSULE PO SCH (09:49)
[2023-03-24] MEDS: SPIRONOLACTONE 25 MG TABLET PO SCH (09:49)
[2023-03-24] MEDS: FUROSEMIDE 20 MG/2 ML VIAL IV SCH ×2 (09:49→17:11)
[2023-03-24] MEDS: MUPIROCIN OINT 2% 22 GM TUBE NS SCH ×2 (09:51→23:07)
[2023-03-24] MEDS: APIXABAN 5 MG TABLET PO SCH ×2 (09:53→17:13)
[2023-03-24] MEDS: INSULIN GLARGINE, 100 UNIT/ML CARTRIDGE SQ SCH ×2 (09:54→17:28)
[2023-03-24] MEDS: GLUCERNA SHAKE 237 ML CAN PO SCH (10:10)
[2023-03-24 11:41] LABS: ALBUMIN 2.2 g/dL (3.4-5.0); BILIRUBIN,DIRECT 0.3 mg/dL (0.0-0.2); BILIRUBIN,TOTAL 0.9 mg/dL (0.2-1.0); CALCIUM, SERUM 8.8 mg/dL (8.5-10.1); CREATININE 1.1 mg/dL (0.6-1.3); POTASSIUM 5.1 mmol/L (3.5-5.1); TOTAL PROTEIN, SERUM 6.9 g/dL (6.4-8.2)
[2023-03-24] MEDS: INSULIN REGULAR, HUMAN 100 UNIT/ML 3 ML VIAL SQ PRN ×3 (12:31→23:09)
[2023-03-24 16:00] VITALS: BP 116/96; TEMP 97.7; O2SAT 96
[2023-03-24 19:34] LABS: CALCIUM, SERUM 8.5 mg/dL (8.5-10.1); CARBON DIOXIDE 27 mmol/L (21-32); CHLORIDE 86 mmol/L (98-107); CREATININE 1.3 mg/dL (0.6-1.3); POTASSIUM 4.8 mmol/L (3.5-5.1); UREA NITROGEN, BLOOD 48 mg/dL (7-18)
[2023-03-24 19:37] LABS: GLUCOSE 488 mg/dL (74-106); SODIUM SERUM 120 mmol/L (136-145)
[2023-03-24 20:00] VITALS: BP 120/78; TEMP 97.9; O2SAT 96
[2023-03-25] VITALS: BP 120/78; TEMP 97.9; O2SAT 96
[2023-03-25 06:56] LABS: BASOPHILS % (AUTO) 0.1 % (0.0-2.0); HEMATOCRIT 38 % (33-45); LYMPHOCYTES # (AUTO) 0.2 K/uL (0.8-4.8); LYMPHOCYTES % (AUTO) 2.5 % (20.0-44.0); MEAN CORPUSCULAR HEMOGLOBIN 24 PG (26.0-33.0); MEAN CORPUSCULAR HGB CONC 32 g/dl (31.0-36.0); MEAN CORPUSCULAR VOLUME 76 fL (82-100); MONOCYTES # (AUTO) 0.4 K/uL (0.1-1.30); MONOCYTES % (AUTO) 5.7 % (2.0-12.0); NEUTROPHILS # (AUTO) 6.6 K/uL (1.8-8.9); NEUTROPHILS % (AUTO) 91.7 % (43.0-81.0); PLATELET COUNT (AUTO) 175 K/uL (150-450); RED BLOOD CELL COUNT(AUTO) 4.92 MIL/uL (4.0-5.2); RED CELL DISTRIBUTION WIDTH 17.2 % (11.5-15.0); WHITE BLOOD COUNT (AUTO) 7.2 K/uL (4.3-11.0)
[2023-03-25 07:00] LABS: CALCIUM, SERUM 8.4 mg/dL (8.5-10.1); CREATININE 1.2 mg/dL (0.6-1.3); POTASSIUM 4.6 mmol/L (3.5-5.1)
[2023-03-25 08:00] VITALS: BP 122/92; TEMP 97.7; O2SAT 99
[2023-03-25 08:45] LABS: ALBUMIN 2.2 g/dL (3.4-5.0); BILIRUBIN,DIRECT 0.3 mg/dL (0.0-0.2); BILIRUBIN,TOTAL 0.8 mg/dL (0.2-1.0); TOTAL PROTEIN, SERUM 7.1 g/dL (6.4-8.2)
[2023-03-25] MEDS ORDERED: DEXA4TAB68 PO (08:54)
[2023-03-25] MEDS: FERROUS SULFATE (325 MG) 325 MG/TAB TABLET PO SCH ×3 (09:00→17:00)
[2023-03-25] MEDS: GLUCERNA SHAKE 237 ML CAN PO SCH (09:21)
[2023-03-25] MEDS: BLOOD SUGAR DIAGNOSTIC 1 EACH STRIP IN SCH ×4 (09:21→22:08)
[2023-03-25] MEDS: dexaMETHasone SOD PHOSPHATE 10 MG/ML VIAL IV SCH (09:22)
[2023-03-25] MEDS: ASCORBIC ACID 500 MG TABLET PO SCH (09:22)
[2023-03-25] MEDS: PANTOPRAZOLE 40 MG/PACK PACK PO SCH ×2 (09:22→09:56)
[2023-03-25] MEDS: ASPIRIN 81 MG TAB.CHEW PO SCH ×2 (09:22→09:56)
[2023-03-25] MEDS: MUPIROCIN OINT 2% 22 GM TUBE NS SCH ×2 (09:26→22:08)
[2023-03-25] MEDS: LEVETIRACETAM (250 MG) 250 MG TABLET PO SCH ×3 (09:26→17:00)
[2023-03-25] MEDS: GABAPENTIN 100 MG CAPSULE PO SCH (09:27)
[2023-03-25] MEDS: ATORVASTATIN 40 MG TABLET PO SCH ×2 (09:27→09:56)
[2023-03-25] MEDS: APIXABAN 5 MG TABLET PO SCH ×3 (09:28→18:36)
[2023-03-25] MEDS: INSULIN REGULAR, HUMAN 100 UNIT/ML 3 ML VIAL SQ PRN ×5 (09:30→22:45)
[2023-03-25] MEDS: INSULIN GLARGINE, 100 UNIT/ML CARTRIDGE SQ SCH ×2 (09:31→18:39)
[2023-03-25] MEDS: DOCUSATE SODIUM 100 MG CAPSULE PO SCH (09:34)
[2023-03-25] MEDS: CARVEDILOL 3.125 MG TABLET PO SCH (09:34)
[2023-03-26] VITALS: BP 142/74; TEMP 98; O2SAT 100
[2023-03-26 08:00] VITALS: BP 140/93; TEMP 98; O2SAT 95
[2023-03-26] MEDS: BLOOD SUGAR DIAGNOSTIC 1 EACH STRIP IN SCH ×2 (08:29→12:03)
[2023-03-26] MEDS: GLUCERNA SHAKE 237 ML CAN PO SCH (08:30)
[2023-03-26] MEDS ORDERED: INSULIN GLARGINE, 100 UNIT/ML CARTRIDGE SQ SCH (09:00)
[2023-03-26] MEDS: LEVETIRACETAM (250 MG) 250 MG TABLET PO SCH (09:28)
[2023-03-26] MEDS: ATORVASTATIN 40 MG TABLET PO SCH (09:28)
[2023-03-26] MEDS: GABAPENTIN 100 MG CAPSULE PO SCH (09:28)
[2023-03-26] MEDS: FERROUS SULFATE (325 MG) 325 MG/TAB TABLET PO SCH (09:29)
[2023-03-26] MEDS: ASPIRIN 81 MG TAB.CHEW PO SCH (09:29)
[2023-03-26] MEDS: ASCORBIC ACID 500 MG TABLET PO SCH (09:29)
[2023-03-26] MEDS: PANTOPRAZOLE 40 MG/PACK PACK PO SCH (09:29)
[2023-03-26 09:30] VITALS: BP 140/93
[2023-03-26] MEDS: CARVEDILOL 3.125 MG TABLET PO SCH (09:30)
[2023-03-26] MEDS: DOCUSATE SODIUM 100 MG CAPSULE PO SCH (09:30)
[2023-03-26] MEDS: APIXABAN 5 MG TABLET PO SCH (09:32)
[2023-03-26] MEDS: INSULIN REGULAR, HUMAN 100 UNIT/ML 3 ML VIAL SQ PRN (12:00)
== END 2023-03-26 14:44 | DRG 871 ==
LOC: ER 06:50 → TRANSITION 08:57 → ICU 03-16 18:48 → TRANSITION 03-16 20:11 → TELE1 03-17 13:45 → MEDSG1 03-19 09:16 → UNDODISIN 03-25 15:52 → MEDSG1 03-25 17:40
PROVIDERS: ADMIT Nurse Practitioner Acute Care; ATTEND Internal Medicine
PROC: 5A09357 Assistance with Respiratory Ventilation, Less than 24 Consecutive Hours, Continuous Positive Airway Pressure (ICD-10-PCS; principal; 2023-03-15)
DX: A41.89 Other specified sepsis (principal); G92.8 Other toxic encephalopathy; I21.A1 Myocardial infarction type 2; I50.33 Acute on chronic diastolic (congestive) heart failure; N17.0 Acute kidney failure with tubular necrosis; U07.1 COVID-19; J12.82 Pneumonia due to coronavirus disease 2019; J15.9 Unspecified bacterial pneumonia; J15.69 Pneumonia due to other Gram-negative bacteria; J96.01 Acute respiratory failure with hypoxia; K72.00 Acute and subacute hepatic failure without coma; E87.1 Hypo-osmolality and hyponatremia; E87.20 Acidosis, unspecified; J44.0 Chronic obstructive pulmonary disease with (acute) lower respiratory infection; N39.0 Urinary tract infection, site not specified; I82.411 Acute embolism and thrombosis of right femoral vein; F03.93 Unspecified dementia, unspecified severity, with mood disturbance; D72.819 Decreased white blood cell count, unspecified; E11.51 Type 2 diabetes mellitus with diabetic peripheral angiopathy without gangrene; F31.9 Bipolar disorder, unspecified; I25.10 Atherosclerotic heart disease of native coronary artery without angina pectoris; I48.0 Paroxysmal atrial fibrillation; R65.20 Severe sepsis without septic shock; I11.0 Hypertensive heart disease with heart failure; R74.01 Elevation of levels of liver transaminase levels; F25.9 Schizoaffective disorder, unspecified; G40.909 Epilepsy, unspecified, not intractable, without status epilepticus; K21.9 Gastro-esophageal reflux disease without esophagitis; Z66 Do not resuscitate; I25.5 Ischemic cardiomyopathy; Z86.73 Personal history of transient ischemic attack (TIA), and cerebral infarction without residual deficits; Z79.01 Long term (current) use of anticoagulants; Z79.4 Long term (current) use of insulin; E87.5 Hyperkalemia; Z22.322 Carrier or suspected carrier of Methicillin resistant Staphylococcus aureus; I71.40 Abdominal aortic aneurysm, without rupture, unspecified; K80.20 Calculus of gallbladder without cholecystitis without obstruction
CPT/HCPCS: 36415; 36600; 71045-TC; 76700-TC; 80048-TC; 80053-TC; 80061-TC; 80076-TC; 80202-TC; 81001; 82140-TC; 82550-TC; 82553; 82803-TC; 82962-TC; 83605-TC; 83735-TC; 83880; 83935-TC; 83970; 84100-TC; 84155; 84165; 84443-TC; 84484-TC; 85025-TC; 85378-TC; 85730-TC; 86140-TC; 86803; 87040-TC; 87081-TC; 87086-TC; 87806; 92526; 92611-TC; 93307-TC; 93970-TC; 94660; 94799-TC; 97110-TC; 97116-TC; 97530-TC; A4223; C9113; G0378; J1100; J1644; J1650; J1815; J1940; J2543; J3370; J7030; J7050; J7060